=== PATIENT | male | born 1990 | race Caucasian/White ===

== ENCOUNTER 2025-09-20 06:51 | Emergency (ER) | payer OTHER ==
[~2025-09-20] VITALS: Ht 188 cm; Wt 77.3 kg
[2025-09-20 06:52] VITALS: TEMP 97.6
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
[2025-09-20 07:23] VITALS: BP 158/101; PULSE 82; RESP 16; O2SAT 100
== END 2025-09-20 07:32 | disposition home or self-care (01) ==
LOC: ER 06:52
DX: S01.01XA Laceration without foreign body of scalp, initial encounter (principal); X58.XXXA Exposure to other specified factors, initial encounter; Y93.89 Activity, other specified; Y92.89 Other specified places as the place of occurrence of the external cause; Y99.8 Other external cause status
CPT/HCPCS: 12001; 99283; A6449